=== PATIENT | female | born 1955 | race Caucasian/White ===

== ENCOUNTER 2016-05-27 13:27 | Day surgery (SDC) | payer MEDICAID, MEDICARE ==
[2016-05-27] MEDS ORDERED: ceFAZolin 1 GM/10 ML VIAL ONE (14:21)
[2016-05-27 16:01] VITALS: TEMP 97.7
[2016-05-27 16:20] VITALS: BP 126/76; PULSE 116; RESP 14; O2SAT 92
--- NOTE | 2016-05-28 05:00 | OPERATIVE REPORT ---
DATE OF SURGERY: 05/27/16 SURGEON: Chris Chicas DPM ANESTHESIA: Local with monitored anesthesia care. PREOPERATIVE DIAGNOSES 1. Diabetic ulcer, right foot. 2. Osteomyelitis, right foot. POSTOPERATIVE DIAGNOSES 1. Diabetic ulcer, right foot. 2. Osteomyelitis, right foot. PROCEDURE PERFORMED: Ostectomy, first metatarsal remnant, right foot. HEMOSTASIS: Pneumatic ankle tourniquet. ESTIMATED BLOOD LOSS: Minimal. PROCEDURE IN DETAIL: The patient was escorted into the operating room and placed on the operating table in a supine position. A pneumatic ankle tourniquet was then placed about the patients right ankle. The first ray was then anesthetized utilizing 15 mL of a 1:1 mixture of 1% lidocaine plain and 0.5 % Marcaine plain. The right foot was then scrubbed, prepped and draped in the usual aseptic manner. The Esmarch bandage was utilized to exsanguinate the patients right foot, and a pneumatic ankle tourniquet was inflated. Attention was then directed to the wound site at the first ray. The first metatarsal was visible through the wound site. It was freed of its soft tissue attachments around the circumference of the bone. A sagittal saw was used to resect approximately the middle third of the bone. The resected portion of bone was then removed and passed from the operative field. It will be sent to Pathology for biopsy. Wound swabs were then obtained which will also be sent for culture and sensitivity. The wound was flushed with copious amounts of sterile normal saline. It was the packed open utilizing bacitracin ointment and quarter inch NuGauze. The wound was then dressed with moistened 4x4 gauze and Alana. An Willis wrap was then applied. The patient tolerated the procedure and anesthesia well. She was transferred to the recovery room with vital signs stable and vascular status intact to all toes of the right foot. The pneumatic ankle tourniquet was deflated. The patient will be discharged home on the following written and oral postoperative instructions. 1. Keep dressings dry and intact. 2. Avoid excessive ambulation. 3. Ice and elevate right foot when at rest. 4. The patient will follow up with Dr. Munoz and Susie Mackenzie for continuing wound care and wound VAC application beginning tomorrow. CHET
--- NOTE | 2016-06-06 17:21 | PREOPERATIVE H&P ---
History of Present Illness (Chris Chicas DPM; 04/15/2016 1:36 PM) The patient is a 60 year old female. Right foot wound care. Pt states that she is feeling better. R foot was debrided further by Dr. Munoz and a wound vac has been applied. Physical Exam (Chris Chicas DPM; 04/15/2016 1:37 PM) Musculoskeletal Lower Extremity Ankle/Foot: Foot - Evaluation of related systems reveals - well developed, well nourished and in no acute distress, alert and oriented x3 and neurovascularly intact bilaterally. Examination of the right foot reveals - no tenderness to palpation, no pain, no swelling, edema or erythema of surrounding tissue, normal foot and ankle movements and range of motion, no crepitus and no known fractures or deformities. Examination of the left foot reveals - no tenderness to palpation, no pain, no swelling, edema or erythema of surrounding tissue, normal foot and ankle movements and range of motion, no crepitus and no known fractures or deformities. Inspection and Palpation - Sensation is - normal, (R) and normal, (L). Pulses - 2+, (R) and 2+, (L). Examination reveals - Note: Wound present at medial R foot. Wound vac in place. Breanna-wound tissues appear viable. Skin temp nl. Assessment & Plan (Chrsi Chicas DPM; 04/15/2016 1:40 PM) Diabetic ulcer of right foot (E11.621) Impression: Continue wound vac until granulation progresses. Graft may be applied thereafter or closure may be completed with vac. Pt will continue with Dr. Munoz's care. f/u with me prn. Diabetic infection of right foot (E11.69) Neuropathy (G62.9) Signed by Chris Chicas DPM (04/15/2016 1:40 PM) CHET
== END 2016-05-27 16:37 | disposition home or self-care (01) ==
LOC: SDS 13:27
PROVIDERS: ATTEND Podiatrist Foot & Ankle Surgery
DX: E11.69 Type 2 diabetes mellitus with other specified complication (principal); M86.271 Subacute osteomyelitis, right ankle and foot; I10 Essential (primary) hypertension; R09.02 Hypoxemia; D64.9 Anemia, unspecified; E11.42 Type 2 diabetes mellitus with diabetic polyneuropathy; G62.9 Polyneuropathy, unspecified; Z79.4 Long term (current) use of insulin
CPT/HCPCS: 87070; 87077; 87186; 87205; J0690

== ENCOUNTER 2016-06-01 15:28 | Emergency (ER) | payer MEDICAID ==
[2016-06-01 16:01] LABS: BASOPHILS 0.1 % (0.0-2.0); EOSINOPHILS 0.2 % (0.0-6.0); LYMPHOCYTES# 1.3 X 10^3uL (0.8-3.8); MONOCYTES# 0.8 X 10^3uL (0.2-1.0)
[2016-06-01 16:02] LABS: HEMATOCRIT 22.1 % (36.0-48.0); LYMPHOCYTES 5.9 % (20.0-40.0); MEAN CELL VOLUME 77.9 fL (80.0-100.0); MEAN CORPUS. HGB CONCENTRATION 32.4 g/dL (32.0-36.0); MEAN CORPUSCULAR HEMOGLOBIN 25.2 pg (29.0-35.0); MEAN PLATELET VOLUME 7.3 fL (7.4-10.4); MONOCYTES 3.8 % (2.0-10.0); NEUTROPHILS# 19.6 X 10^3uL (2.6-6.7); RED BLOOD COUNT 2.83 X 10^6uL (4.20-6.10)
[2016-06-01 16:09] LABS: WHITE BLOOD COUNT 21.7 X 10^3uL (3.9-10.7)
[2016-06-01 16:10] LABS: CALCIUM 8.8 mg/dL (8.4-10.2); CREATININE 1.3 mg/dL (0.5-1.0); POTASSIUM 5.1 mmol/L (3.5-5.1)
[2016-06-01 16:11] LABS: HEMOGLOBIN 7.2 g/dL (12.0-16.0)
[2016-06-01 16:12] LABS: RED CELL DISTRIBUTION WIDTH 16.3 % (11.5-14.5)
[2016-06-01 18:21] LABS: URINE MUCUS NONE SEEN (Up to 25%)
[2016-06-01 18:30] LABS: URINE APPEARANCE SLIGHTLY CLOUDY; URINE BILIRUBIN NEGATIVE (NEGATIVE); URINE BLOOD 250 Ery/uL (3+) (NEGATIVE); URINE GLUCOSE 100mg/dL (NEGATIVE); URINE KETONE NEGATIVE (NEGATIVE); URINE LEUKOCYTE ESTERASE NEGATIVE (NEGATIVE); URINE NITRITE NEGATIVE (NEGATIVE); URINE PH 5.5 (5-7); URINE PROTEIN 100mg/dL (2+) (NEG - TRACE); URINE UROBILINOGEN 0.2mg/dL (Normal) (NEG-1mg/dL)
[2016-06-01 18:31] LABS: URINE AMORPHOUS SEDIMENT UP TO 50%/lpf (Up to 25%); URINE BACTERIA <10 ORGANISMS/hpf (<10/hpf); URINE COLOR DARK YELLOW; URINE SQUAMOUS EPITHELIAL CELL 0-5/hpf (<= 15/hpf); URINE WBC 0-4/hpf (0-4/hpf)
[2016-06-01 18:48] LABS: ABO GROUP TYPE A; ANTIBODY SCREEN NEGATIVE; CROSSMATCH IMMEDIATE SPIN COMPATIBLE; RH TYPE NEGATIVE
[2016-06-01] MEDS ORDERED: NORMAL SALINE 100 ML IV ONE (18:52)
--- NOTE | 2016-06-01 18:57 | ER NURSING DOCUMENTATION ---
Nurse's Notes [facility] Name:Fallon Ramirez Age:61 yrs Sex:Female :1955 Arrival Date:06/01/2016 Time:15:28 BedTrauma A Private MD: Diagnosis:Anemia;Leukocytosis- Unspecified;Hyponatremia;Dehydration Presentation: 06/01 15:46 Acuity: WANDA 3 sj 15:58 Presenting complaint: EMS states: weakness, fell during night and refused transport. sj Now too weak to get up and friend called EMS. Hasn't eaten or drank in 2 days. Chronic anorexia for many years. Hands covered in stool. Diarrhea x 2 days. 200 ml saline bolus by EMS. BG 326. Recent big toe amputation, by Dr. Munoz, with hospitalization and recent discharge. Transition of care: Home. Time Last Known Well for patient was ?. Notified ED Physician of patient's arrival and CC Dr. Aranda notified. 15:58 Method Of Arrival: EMS: 410 sj Triage Assessment: 16:06 The onset of the patients symptoms was at an unknown time. General: Appears cachectic, sj malnourished, unkempt, Behavior is cooperative, flat. Pain: Denies pain. Neuro: Level of Consciousness is awake, alert, Oriented to person, place, time, event, Reports weakness generalized. Historical: - Allergies: No known drug Allergies; - Home Meds: 1. Lisinopril Oral 2. Potassium Chloride Oral 3. Spironolactone Oral 4. Aspirin Rectal 5. Furosemide Oral 6. carvedilol oral 7. metoclopramide HCl Oral 8. insulin - PSHx: right big toe amputation; Tonsillectomy; - Tetanus: unknown. - Ebola Screening: : Patient negative for fever greater than or equal to 101.5 degrees Fahrenheit, and additional compatible Ebola Virus Disease symptoms. Patient denies exposure to infectious person. Patient denies travel to an Ebola-affected area in the 21 days before illness onset. No symptoms or risks identified at this time. . - Immunization history: Pneumococcal vaccine is not up to date, Patient has never been vaccinated Flu Vaccine unknown. - Social history: Smoking status: Patient states was never smoker of tobacco. Patient/guardian denies using alcohol, marijuana. Screenin:09 Infectious Disease Risk None. Abuse screen: Denies threats or abuse. Denies injuries sj from another. Nutritional screening: Intervention for positive screen: unable to obtain weight loss measure, but admits to anorexia for years, currently hasn't eaten and drank in 2 days.. 17:03 Suicide Risk Assessment: Suicidal Thinking Present - No ( 0 points), Has Serious Health sj Problem - Yes (1 point), Lives Alone - Yes (1 point). Assessment: 16:59 Neuro: Reports paresthesias both hands and feet. Cardiovascular: Heart tones S1 S2 sj Rhythm is sinus rhythm. Respiratory: Airway is patent Respiratory effort is even, unlabored, Respiratory pattern is regular, Breath sounds are clear bilaterally. GI: Bowel sounds present X 4 quads. Abd is soft Abd is non tender X 4 quads Reports diarrhea, intolerance of fluids, intolerance of food, Denies nausea, vomiting. 18:54 Reassessment: blood transfusion complete upon time of transfer per EMS. Asymptoms. BP sj improved.. Vital Signs: 16:07 BP 90 / 52; Pulse 82; Resp 17; Temp 98.3(O); Pulse Ox 95% on R/A; Weight 63.5 kg; sj Height 5 ft. 4 in. (162.56 cm); Pain 0/10; 16:30 BP 96 / 55; Pulse 81; Resp 20; Pulse Ox 97% on R/A; sj 16:59 BP 100 / 63; Pulse 83; Resp 19; Pulse Ox 98% on R/A; sj 17:45 BP 96 / 50; Pulse 84; Resp 22; Temp 97.8; Pulse Ox 95% on R/A; Pain 0/10; sj 18:00 BP 80 / 45; Pulse 88; Resp 20; Temp 98.1(O); Pulse Ox 97% on R/A; Pain 0/10; sj 18:15 BP 107 / 65; Pulse 88; Resp 21; Pulse Ox 97% on R/A; Pain 0/10; sj 16:07 Body Mass Index 24.03 (63.50 kg, 162.56 cm) sj ED Course: 15:30 Patient arrived in ED. lm3 15:46 Julieta Penny is Primary Nurse. sj 15:51 Triage completed. sj 15:54 Chris Aranda MD is Attending Physician. ar 16:11 Valuables Remains with patient Patient has correct armband on for positive sj identification. Placed in gown. Bed in low position. Call light in reach. Side rails up X2. Adult w/ patient. Cardiac Monitoring On for Nurse Monitoring only. Pulse Ox - RN Monitoring Only NIBP On - RN Monitoring Only. 16:12 Labs drawn. By EMS. Maintain field IV. Dressing intact. Site clean & dry. Gauge & site: sj 20 g in right forearm. 17:04 First set of blood cultures drawn Second set of blood cultures drawn by me by Lab staff sj T&C drawn. 17:56 Warm blanket given. cleaned perineum of caked-on dried diarrhea (2 days old). Entire sj perineum excoriated with various open areas.. 17:57 Urine collected. straight cath. sj Administered Medications: 15:44 Drug: NS 0.9% 1000 ml; Route: IV; Rate: bolus; Site: right forearm; sj 17:59 Follow up: IV Status: Completed infusion; IV Intake: 1000ml sj Medication: 18:55 Blood products: See transfusion record. Point of Care Testing: Urine Dip: 18:36 pH: 5.5; ; Specific [place]: 1.020; Ketones: Negative; Glucose: Positive; Protein: sj Positive (++); Leukocytes: Negative; Nitrite: Negative ; Blood: Large (+++); Bilirubin: Negative ; Urobilinogen: Normal Intake: 17:59 IV: 1000ml; Total: 1000ml. Outcome: 17:22 ER care complete, transfer ordered by . desi 18:37 Transferred: Patient will be transferred to: [facility]. Facility Acceptance Time: June 01, 2016 at 18:00 Patient's face sheet was faxed to accepting facility. Face Sheet included patient's name, address, age, gender, contact information and insurance information. Patient will be transported by: [facility] ground. Report called to: Sayra WILSON Nurse and Physician Charting and Notes were sent to Accepting Facility. All tests and/or procedures with results, if applicable, were sent to accepting facility. 18:37 Condition: stable 18:37 Report given to Sayra WILSON at [facility] 18:37 Instructed on need for transfer 18:56 Patient left the ED. Signatures: Chris Aranda MD MD sc Janzen, Sarah sj McKibbon-Moore, Lisa lm3
--- NOTE | 2016-06-01 18:57 | ER PHYSICIAN DOCUMENTATION ---
Physician Documentation [facility] Name:Fallon Ramirez Age:61 yrs Sex:Female :1955 Arrival Date:06/01/2016 Time:15:28 BedTrauma A Private MD: Chris Boyle Disposition: 06/01/16 17:22 Transfer ordered to [facility]. Diagnosis are Anemia, Leukocytosis- Unspecified, Hyponatremia, Dehydration. - Reason for transfer: Higher level of care. - Accepting physician is MADISYN Yan. - Condition is Serious. - Problem is an acute exacerbation. - Symptoms are unchanged. COBRA Form completed? Transfer - Mode of Transportation Ambulance HPI: 06/01 17:14 This 61 yrs old Female presents to ER via EMS with complaints of Weakness. sc 17:14 The patient presents to the emergency department with weakness of the entire body, sc generalized weakness, that is severe. Onset: The symptom(s)/episode began/occurred at an unknown time. and became worse today. Severity of symptoms: At their worst the symptoms were severe in the emergency department the symptoms are unchanged. Patient's baseline: Neuro: alert and fully oriented, Motor: no deficits, Ambulation: walks without assistance. Current symptoms: generalized weakness, found laying in bed in her own stool, home care taking care of diabetic foot ulcer s/p toe amputation. Historical: - Allergies: No known drug Allergies; - Home Meds: 1. Lisinopril Oral 2. Potassium Chloride Oral 3. Spironolactone Oral 4. Aspirin Rectal 5. Furosemide Oral 6. carvedilol oral 7. metoclopramide HCl Oral 8. insulin - PSHx: right big toe amputation; Tonsillectomy; - Tetanus: unknown. - Ebola Screening: : Patient negative for fever greater than or equal to 101.5 degrees Fahrenheit, and additional compatible Ebola Virus Disease symptoms. Patient denies exposure to infectious person. Patient denies travel to an Ebola-affected area in the 21 days before illness onset. No symptoms or risks identified at this time. . - Immunization history: Pneumococcal vaccine is not up to date, Patient has never been vaccinated Flu Vaccine unknown. - Social history: Smoking status: Patient states was never smoker of tobacco. Patient/guardian denies using alcohol, marijuana. ROS: 17:16 Eyes: Negative for injury, pain, redness, and discharge. sc ENT: Negative for injury, pain, and discharge. Neck: Negative for injury, pain, and swelling. Cardiovascular: Negative for chest pain, palpitations, and edema. Respiratory: Negative for shortness of breath, cough, wheezing, and pleuritic chest pain. Abdomen/GI: Negative for abdominal pain, nausea, vomiting, diarrhea, and constipation. Back: Negative for injury and pain. 17:16 Skin: Negative for injury, rash, and discoloration. sc 17:16 Constitutional: Positive for fatigue, poor PO intake. 17:16 MS/extremity: Positive for diabetic foot ulcer. 17:16 Neuro: Positive for weakness. 17:16 Psych: Positive for depression, Negative for auditory hallucinations, visual hallucinations, homicidal ideation, suicidal ideation. Exam: Head/Face: Normocephalic, atraumatic. Eyes: Pupils equal round and reactive to light, extra-ocular motions intact. Lids and lashes normal. Conjunctiva and sclera are non-icteric and not injected. Cornea within normal limits. Periorbital areas with no swelling, redness, or edema. ENT: Nares patent. No nasal discharge, no septal abnormalities noted. Tympanic membranes are normal and external auditory canals are clear. Oropharynx with no redness, swelling, or masses, exudates, or evidence of obstruction, uvula midline. Mucous membranes moist. Neck: Trachea midline, no thyromegaly or masses palpated, and no cervical lymphadenopathy. Supple, full range of motion without nuchal rigidity, or vertebral point tenderness. No meningismus. Chest/axilla: Normal chest wall appearance and motion. Nontender with no deformity. No lesions are appreciated. Cardiovascular: Regular rate and rhythm with a normal S1 and S2. No gallops, murmurs, or rubs. Normal PMI, no JVD. No pulse deficits. Respiratory: Lungs have equal breath sounds bilaterally, clear to auscultation and percussion. No rales, rhonchi or wheezes noted. No increased work of breathing, no retractions or nasal flaring. Abdomen/GI: Soft, non-tender, with normal bowel sounds. No distension or tympany. No guarding or rebound. No evidence of tenderness throughout. 17:17 Neuro: Awake and alert, GCS 15, oriented to person, place, time, and situation. ma Cranial nerves II-XII grossly intact. Motor strength 5/5 in all extremities. Sensory grossly intact. Cerebellar exam normal. Normal gait. 17:17 Constitutional: The patient appears frail, lethargic. 17:17 Eyes: Pupils: equal, round, and reactive to light and accomodation, Conjunctiva: pale, bilaterally. 17:17 Cardiovascular: Rate: normal, Rhythm: regular. 17:17 Skin: Appearance: Color: pale, Turgor: is poor. 17:17 Neuro: Motor: is normal, Sensation: is normal, no obvious gross deficits. Vital Signs: 16:07 BP 90 / 52; Pulse 82; Resp 17; Temp 98.3(O); Pulse Ox 95% on R/A; Weight 63.5 kg; sj Height 5 ft. 4 in. (162.56 cm); Pain 0/10; 16:30 BP 96 / 55; Pulse 81; Resp 20; Pulse Ox 97% on R/A; sj 16:59 BP 100 / 63; Pulse 83; Resp 19; Pulse Ox 98% on R/A; sj 17:45 BP 96 / 50; Pulse 84; Resp 22; Temp 97.8; Pulse Ox 95% on R/A; Pain 0/10; sj 18:00 BP 80 / 45; Pulse 88; Resp 20; Temp 98.1(O); Pulse Ox 97% on R/A; Pain 0/10; sj 18:15 BP 107 / 65; Pulse 88; Resp 21; Pulse Ox 97% on R/A; Pain 0/10; sj 16:07 Body Mass Index 24.03 (63.50 kg, 162.56 cm) MDM: 16:27 Patient medically screened. ma 17:20 Neurological re-evaluation: normal neurological exam including cranial nerves, ma orientation, mentation, motor and sensory exam, cerebellar testing, GCS normal, and normal gait. It is unknown when the patient was last well. Thrombolytics: No thrombolytic given due to patient's history. Data reviewed: vital signs, nurses notes, old medical records, lab test result(s), and as a result, I will *Transfer Patient administer blood or plasma, administer IV fluids. Counseling: I had a detailed discussion with the patient and/or guardian regarding: the historical points, exam findings, and any diagnostic results supporting the discharge/admit diagnosis, lab results, the need to transfer to another facility. Response to treatment: the patient's symptoms have mildly improved after treatment. 17:34 Physician consultation: Minor Yan was called at 17:35, was contacted at 17:35, ma regarding patient's condition. 06/01 16:12 Order name: CBC AUTO DIF, MDIF/RMOR IF IND; Complete Time: 16:27 [facility] 06/01 16:27 Interpretation: Abnormal: WHITE BLOOD COUNT 21.7; HEMOGLOBIN 7.2; HEMATOCRIT 22.1. ma 06/01 16:19 Order name: BASIC METABOLIC PANEL; Complete Time: 16:28 [facility] 06/01 16:27 Interpretation: Abnormal: SODIUM 132; BLOOD UREA NITROGEN 48; CREATININE 1.3. ma 06/01 17:24 Order name: LACTATE; Complete Time: 17:34 [facility] 06/01 18:32 Order name: UA W/ MICRO -CULTURE IF IND [facility] 06/01 18:49 Order name: CROSSMATCH IMMEDIATE SPIN [facility] 06/01 18:49 Order name: ABO GROUP [facility] 06/01 18:49 Order name: RH TYPE [facility] 06/01 18:49 Order name: ANTIBODY SCREEN [facility] 06/01 18:49 Order name: CROSSMATCH IMMEDIATE SPIN [facility] 06/01 16:35 Order name: Hemocult Stool ma 06/01 16:36 Order name: Transfuse 2 Units T & C'd PRBCs; Complete Time: 18:00 ma Dispensed Medications: 15:44 Drug: NS 0.9% 1000 ml; Route: IV; Rate: bolus; Site: right forearm; 17:59 Follow up: IV Status: Completed infusion; IV Intake: 1000ml Point of Care Testing: Urine Dip: 18:36 pH: 5.5; ; Specific [place]: 1.020; Ketones: Negative; Glucose: Positive; Protein: Positive (++); Leukocytes: Negative; Nitrite: Negative ; Blood: Large (+++); Bilirubin: Negative ; Urobilinogen: Normal Signatures: Chris Aranda MD MD sc Janzen, Sarah
== END 2016-06-01 18:57 | disposition short-term general hospital (02) ==
LOC: ER 15:28
DX: D64.9 Anemia, unspecified (principal); D72.829 Elevated white blood cell count, unspecified; E87.1 Hypo-osmolality and hyponatremia; E86.0 Dehydration; R53.1 Weakness; E11.621 Type 2 diabetes mellitus with foot ulcer; Z89.411 Acquired absence of right great toe; R53.83 Other fatigue; E11.65 Type 2 diabetes mellitus with hyperglycemia; Z79.899 Other long term (current) drug therapy; Z79.4 Long term (current) use of insulin; Z99.89 Dependence on other enabling machines and devices; Z74.3 Need for continuous supervision; Z79.82 Long term (current) use of aspirin
CPT/HCPCS: 36430; 80048; 81001; 83605; 85025; 86850; 86900; 86901; 86920; 87040; 96360; 96361; 99285; A0425; A0427; P9040-BL